=== PATIENT | female | born 1960 | race Caucasian/White ===

== ENCOUNTER → 2019-03-24 14:13 | Outpatient (BNVA) | payer BC, SELFPAY | PROVIDERS: PCP Nurse Practitioner Family; Visit Provider Nurse Practitioner Family | DX: R07.9 Chest pain, unspecified (principal); B37.2 Candidiasis of skin and nail | CPT/HCPCS: 71046; 80053; 82550; 82728; 83540; 83550; 84484; 85025 ==

== ENCOUNTER 2023-06-25 07:44 | Emergency (ER) | payer BC, SELFPAY ==
[2023-06-25 08:02] VITALS: BP 190/91; PULSE 62; RESP 18; TEMP 36.7; O2SAT 98; BMI 29.0
--- NOTE | 2023-06-25 08:13 | XR_ITS ---
WS: [id number] Exam: XR chest 1V portable [id number] Date/Time of Exam: 06/25/2023 8:46 AM Reason For Exam: dyspnea/cough Findings: The lungs are clear and fully expanded. Costophrenic angles are sharp. No infiltrates. Bronchovascula r relief appears normal. Cardiac silhouette is unremarkable. Bony elements are intact. IMPRESSION: Unremarkable chest radiograph.
--- NOTE | 2023-06-25 08:14 | CT_ITS ---
WS: [id number] CT HEAD TECHNIQUE: Noncontrast CT of the head obtained from the skullbase to the vertex. CLINICAL INFORMATION: dizzy COMPARISON: None. DLP: 1105.[address] scans at [facility] use at least one of these dose optimization techniques: automated e xposure control; mA and/or kV adjustment per patient size (includes targeted exams where dose is matc hed to clinical indication); or iterative reconstruction. FINDINGS: No evidence of intracranial hemorrhage or mass effect. Ventricular system and basal cisterns are diamond nt. Moderate small vessel changes with moderate parenchymal volume loss. No extra-axial fluid collect ions. No evidence of mass or mass effect. Cavernous carotid calcification. Paranasal sinuses and mastoid air cells are well aerated. .Normal visualized soft tissues. IMPRESSION: 1. No evidence of intracranial hemorrhage or mass effect. 2. Moderate small vessel changes with moderate parenchymal volume loss. 3. Cavernous carotid calcification. 4. No acute intracranial findings.
--- NOTE | 2023-06-25 08:17 | ED_ITS ---
HPI - Dizziness 2 General: Chief Complaint: Dizziness Stated Complaint: Off Balance Time Seen by Provider: 06/25/23 07:56 Source: patient Mode of arrival: ambulatory History of Present Illness: HPI Narrative: 63-year-old female presents emergency ro om with complaints of dizziness that began this morning when she first checked out. She felt nauseous with it. She had a little blurry vision associated with it as well. Better when she lays down and worse when she bent over to pick something up off the floor. All of her symptoms are resolved at this time she does have a history hypertension she usually takes her medications at night she took some all normally last evening. MD elicited complaint: dizziness Associated symptoms: Denies chest pain or chills Review of Systems 2 Const: Denies: fever(s) or chills Card: Denies: chest pain Resp: Denies: dyspnea GI: Denies: abdominal pain : Denies: dysuria, urinary frequency or urinary urgency Musc: Denies: neck pain or back pain Skin/Breast: Denies: rash PFSH ED 2 PFSH: Medical History GERD (gastroesophageal reflux disease) Social History Smoking and tobacco/nicotine status: never used tobacco/nicotine Alcohol intake: never Substance/Drug Use: never Lives independently: Yes Marital status: Physical Exam 2 Const: COMMON NORMALS: no acute distress GENERAL APPEARANCE: cooperative and comfortable ORIENTATION/CONSCIOUSNESS: Yes awake, Yes oriented to person, Yes oriented to place and Yes oriented to time HENMT: COMMON NORMALS: normocephalic, atraumatic and hearing grossly normal bilaterally HEAD & SCALP: normocephalic and atraumatic Resp: COMMON NORMALS: normal respiratory effort, No retractions, No use of accessory muscles and clear to auscultation bilaterally AUSCULTATION: clear to auscultation bilaterally Cardio: COMMON NORMALS: regular rate, regular rhythm and No murmurs present (Cardio) RATE: regular rate RHYTHM: regular rhythm GI: COMMON NORMALS: Soft to palpation and No hepatosplenomegaly present A USCULTATION: Yes normoactive bowel sounds PALPATION: Yes Soft to palpation, No Tenderness to palpation present (GI), No Guarding due to palpation present (GI) and Yes No hepatosplenomegaly present Extremity: COMMON NORMALS: normal to inspection, capillary refill normal, no clubbing, cyanosis or edema, no calf tenderness and no pedal edema Neuro: SENSORIUM/ORIENTATION: Yes oriented to person, Yes oriented to place and Yes oriented to time Skin: COMMON NORMALS: no rashes or lesions noted GENERAL SKIN EXAM: no rashes or lesions noted Course 2 Vital Signs: Vital signs: Vital Signs Temperature 98.1 F 06/25/23 08:02 Pulse Rate 75 06/25/23 10:15 Respiratory Rate 16 06/25/23 10:15 Blood Pressure 127/70 06/25/23 10:15 Pulse Oximetry 99 06/25/23 10:15 Oxygen Delivery Me thod Room Air 06/25/23 08:02 MDM - Dizziness Medical Decision Making Symptoms improved but symptoms are worsened with movement better when lying down. Her NIH score is 0 she has no signs at this point it looks like a posterior stroke. Blood pressure is also improved. Will discharge patient home add lisinopril 20 mg daily continue all of her other medications have her follow-up with her primary care doctor within the next week to reevaluate blood pressure can use meclizine as needed Medical Records I reviewed the patient's medical records. Lab Data I reviewed the patient's lab results. 06/25/23 08:38 06/25/23 08:38 Laboratory Results WBC 12.97 10^3/uL (3.29-11.43) H 06/25/23 08:38 RBC 4.78 10^6/uL (3.85-5.65) 06/25/23 08:38 Hgb 13.00 g/dL (11.27-16.99) 06/25/23 08:38 Hct 41.2 % (36-47) 06/25/23 08:38 MCV 86.2 fl (85-98) 06/25/23 08:38 MCH 27.2 pg (27-33) 06/25/23 08:38 MCHC 31.6 g/dL (30-55) 06/25/23 08:38 RDW 13.3 % (12.1-15.1) 06/25/23 08:38 Plt Count 350 10^3/cmm (157-399) 06/25/23 08:38 MPV 9.3 fL (7.4-10.4) 06/25/23 08:38 Neut % (Auto) 81.2 % 06/25/23 08:38 Lymph % (Auto) 12.9 % 06/25/23 08:38 [place] % (Auto) 4.4 % 06/25/23 08:38 Eos % (Auto) 0.5 % 06/25/23 08:38 Baso % (Auto) 0.5 % 06/25/23 08:38 Neut # (Auto) 10.54 10^3/uL (1.8-7.7) H 06/25/23 08:38 Lymph # (Auto) 1.7 10^3/uL (0.8-4.8) 06/25/23 08:38 [place] # (Auto) 0.6 10^3/uL (0.2-0.9) 06/25/23 08:38 Eos # (Auto) 0.1 10^3/uL (0.0-0.8) 06/25/23 08:38 Baso # (Auto) 0.1 10^3/uL (0.0-0.1) 06/25/23 08:38 Nucleated RBC % (auto) 0 % 06/25/23 08:38 Nucleated RBCs # 0.0 /100WBC 06/25/23 08:38 Sodium 140 mmol/L (136-145) 06/25/23 08:38 Potassium 4.8 mmol/L (3.5-5.1) 06/25/23 08:38 Chloride 104 mmol/L (98-107) 06/25/23 08:38 Carbon Dioxide 27 mmol/L (22-29) 06/25/23 08:38 Anion Gap 13.8 (5-19) 06/25/23 08:38 BUN 14 mg/dL (8-23) 06/25/23 08:38 Creatinine 0.8 mg/dL (0.5-0.9) 06/25/23 08:38 GFR Calculation 72.0 mL/min (90-130) L 06/25/23 08:38 Glucose 114 mg/dL (65-115) 06/25/23 08:38 Calculated Osmolality 291 mOsm/kg (285-295) 06/25/23 08:38 Calcium 9.1 mg/dL (8.5-10.5) 06/25/23 08:38 Total Bilirubin 0.2 mg/dL (0.15-1.2) 06/25/23 08:38 AST 10 U/L (0-32) 06/25/23 08:38 ALT 7 U/L (0-33) 06/25/23 08:38 Alkaline Phosphatase 75 U/L (35-105) 06/25/23 08:38 Troponin T Baseline 10 ng/L (0-10) 06/25/23 08:38 Total Protein 7.4 g/dL (6.6-8.7) 06/25/23 08:38 Albumin 3.9 g/dL (3.5-5.2) 06/25/23 08:38 Globulin 3.5 g/dL (1.3-4.6) 06/25/23 08:38 All radiology interpretation(s) finalized by discharge Discharge Plan Discharge Patient Disposition: Home Clinical Impression: Labyrinthitis, HTN (hypertension) Condition: Stable Prescriptions: New lisinopril 20 mg tablet 20 mg PO DAILY Qty: 30 0RF meclizine 25 mg tablet 25 mg PO QID PRN (Reason: dizziness) Qty: 14 0RF No Action diltiazem HCl 120 mg capsule,extended release 12 hr 120 mg PO DAILY montelukast [Singulair] 10 mg tablet 10 mg PO DAILY pantoprazole [Protonix] 40 mg tablet,delayed release (DR/EC) 40 mg PO DAILY Qty: 30 5RF nebivolol 20 mg tablet 20 mg PO DAILY Prempro 0.625-2.5 mg tablet 1 tab PO DAILY escitalopram oxalate 10 mg tablet 10 mg PO DAILY Discharge Orders: Discharge ED (Routine); Ordered 06/25/23 Ordered By: Rylan Llanos Referrals: Jania Sullivan FNP-C [Primary Care Provider] - Discharge Diet: Usual diet Discharge Activity: Increase activity as tolerated Patient Instructions: Opioid Safety, Pain Management Activity Restrictions/Additional Instructions: Thank you for choosing [facility] for your healthcare needs today. Please realize this is an emergency room and that we are providing you with a medical screening exam and this may not be complete and all inclusive of all the testing and or work up that you may need to determine your ailment or severity of your illness. It is very important that you follow up as instructed or that you return to the Emergency Department should you have concerns or if your condition changes or worsens in any way. You were seen today for dizziness and elevated blood pressure. Your blood pressure improved. Your symptoms seem to be triggered by movement. We gave you meclizine to use as needed for dizziness also added lisinopril 20 mg daily. Blood pressure recheck with your doctor within the week. 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
[2023-06-25] MEDS: amlodipine 5 mg Tablet PO (08:46)
[2023-06-25] MEDS: hyDRALAzine 20 mg/mL INJ 1 mL 10 MG IVP (08:46)
--- NOTE | 2023-06-25 08:52 | ECG_ITS ---
[facility] Test Date: 2023-06-25 Pat Name: Marco Antonio Traylor Department: Room: Gender: Female Team Lead: : 1960 Requested By: Rylan Naidu Order Number: [id number] Amy MD: Lianna Morgan M.D. Measurements Intervals [place] Rate: 64 P: 63 MA: 185 QRS: 27 QRSD: 83 T: 56 QT: 425 QTc: 441 Interpretive Statements SINUS RHYTHM No previous ECG available for comparison Electronically Signed On 06-25-2023 19:24:00 CDT by Lianna Morgan M.D. [id number]
[2023-06-25 08:58] LABS: Basophils # 0.1 10^3/uL (0.0-0.1); Basophils % 0.5 %; Eosinophils # 0.1 10^3/uL (0.0-0.8); Eosinophils % 0.5 %; Hematocrit 41.2 % (36-47); Lymphocytes # 1.7 10^3/uL (0.8-4.8); Lymphocytes % 12.9 %; Mean Corpuscular HGB Conc 31.6 g/dL (30-55); Mean Corpuscular Hemoglobin 27.2 pg (27-33); Mean Corpuscular Volume 86.2 fl (85-98); Mean Platelet Volume 9.3 fL (7.4-10.4); Monocytes # 0.6 10^3/uL (0.2-0.9); Monocytes % 4.4 %; Neutrophils # 10.54 10^3/uL (1.8-7.7); Neutrophils % 81.2 %; Nucleated Red Blood Cells % 0 %; Platelet Count 350 10^3/cmm (157-399); Red Blood Count 4.78 10^6/uL (3.85-5.65); Red Cell Distribution Width 13.3 % (12.1-15.1); White Blood Count 12.97 10^3/uL (3.29-11.43)
[2023-06-25 09:17] LABS: Alanine Aminotransferase 7 U/L (0-33); Albumin Level 3.9 g/dL (3.5-5.2); Alkaline Phosphatase 75 U/L (35-105); Anion Gap 13.8 (5-19); Aspartate Amino Transferase 10 U/L (0-32); Blood Urea Nitrogen 14 mg/dL (8-23); Calcium 9.1 mg/dL (8.5-10.5); Carbon Dioxide 27 mmol/L (22-29); Chloride 104 mmol/L (98-107); Creatinine Clr Calc Pharmacy 75.5247; Globulin 3.5 g/dL (1.3-4.6); Glucose 114 mg/dL (65-115); Osmolality Calculated 291 mOsm/kg (285-295); Potassium 4.8 mmol/L (3.5-5.1); Sodium 140 mmol/L (136-145); Total Bilirubin 0.2 mg/dL (0.15-1.2); Total Protein 7.4 g/dL (6.6-8.7); Troponin(5th) Baseline 10 ng/L (0-10)
[2023-06-25 09:30] VITALS: BP 141/78; PULSE 70; RESP 15; O2SAT 99
[2023-06-25 10:06] VITALS: BP 127/71; BP 154/86; BP 162/75
[2023-06-25] MEDS: LORazepam 1 mg Tablet PO (10:11)
[2023-06-25 10:15] VITALS: BP 127/70; PULSE 75; RESP 16; O2SAT 99
== END 2023-06-25 10:50 | disposition home or self-care (01) ==
PROVIDERS: Emergency Provider Family Medicine; PCP Nurse Practitioner Family
DX: H83.09 Labyrinthitis, unspecified ear (principal); I10 Essential (primary) hypertension
CPT/HCPCS: 70450; 71045; 80053; 84484; 85025; 93005; 96374; 99285; J0360

== ENCOUNTER 2024-12-18 14:10 | Outpatient (CLI) | payer BC, SELFPAY ==
--- NOTE | 2024-12-18 14:20 | XRR_ITS ---
PROCEDURE INFORMATION: Exam: XR Right Shoulder Exam date and time: 12/18/2024 2:30 PM Age: 64 years old Clinical indication: Upper arm; Right lateral arm pain, no specific injury; Additional info: R arm right TECHNIQUE: Imaging protocol: Radiologic exam of the right shoulder. Views: 2 or more views. COMPARISON: [place] [id number] 12/18/2024 2:30 PM FINDINGS: Bones/joints: Normal. Soft tissues: Normal. XR/XR shoulder RT min 2V* [id number] IMPRESSION: No acute findings.
--- NOTE | 2024-12-18 14:20 | XRR_ITS ---
PROCEDURE INFORMATION: Exam: XR Cervical Spine Exam date and time: 12/18/2024 2:30 PM Age: 64 years old Clinical indication: Other: Arm pain starting at top of humerus; Right lateral arm pain, no specific injury; Additional info: Neck pain TECHNIQUE: Imaging protocol: Radiologic exam of the cervical spine. Views: 2 or 3 views. COMPARISON: CT head wo con* [id number] 06/25/2023 8:59 AM FINDINGS: Bones/joints: Normal. No acute fracture. Normal alignment. Soft tissues: Unremarkable. XR/XR cervical spine 3V* [id number] IMPRESSION: No acute findings.
--- NOTE | 2024-12-18 14:20 | XRR_ITS ---
PROCEDURE INFORMATION: Exam: XR Right Humerus Exam date and time: 12/18/2024 2:30 PM Age: 64 years old Clinical indication: Upper arm; Right lateral arm pain, no specific injury; Additional info: R arm pain TECHNIQUE: Imaging protocol: Radiologic exam of the right humerus. Views: 2 or more views. COMPARISON: CR XR shoulder RT min 2V* [id number] 12/18/2024 2:30 PM FINDINGS: Bones/joints: Normal. Soft tissues: Normal. XR/[place] [id number] IMPRESSION: No acute findings.
== END 2024-12-18 14:11 | disposition home or self-care (01) ==
PROVIDERS: PCP Nurse Practitioner Family; Visit Provider Nurse Practitioner Family
DX: M79.621 Pain in right upper arm (principal); M54.2 Cervicalgia
CPT/HCPCS: 72040; 73030; 73060